=== PATIENT | female | born 1975 | race Caucasian/White ===

== ENCOUNTER 2018-09-24 11:24 | Emergency (ER) | payer BC ==
[~2018-09-24] VITALS: Ht 152.4 cm; Wt 86.4 kg
[~2018-09-24 11:24] MED LIST: MOBI4TAB PO
--- NOTE | 2018-09-24 12:01 | REP ---
Clinical: Left knee pain Technique: AP, lateral, bilateral oblique and sunrise views left knee . Findings: The osseous structures and joint spaces are intact and normal. There is no evidence for acute fracture or dislocation. No joint effusion is appreciated. Surrounding soft tissues are unremarkable. No subcutaneous emphysema or radiodense foreign body. Impression: No acute fracture or dislocation. Electronically Signed by Emory Leslie MD 09/24/2018 11:52 A
[2018-09-24] MEDS ORDERED: CETACAINE SPRAY 5GM TOP ONE (13:15)
[2018-09-24 13:58] VITALS: BP 173/92
[2018-09-24 14:00] LABS: SOURCE, BODY FLUID LFT KNEE; SYNOVIAL FLUID COLOR PALE YELLOW (YELLOW)
[2018-09-24 14:08] LABS: CRYSTALS, BODY FLUID NONE SEEN (NONE SEEN); SOURCE, BODY FLUID CRYSTALS LFT KNEE
[2018-09-24 14:13] LABS: SOURCE, BODY FLUID GLUCOSE LFT KNEE; SOURCE, BODY FLUID URIC ACID LFT KNEE; URIC ACID, BODY FLUID 5.9 MG/DL (NOT ESTABLISHED)
[2018-09-24 14:27] LABS: BODY FLUID RHEUMATOID SCREEN NEGATIVE (NEGATIVE)
[2018-09-24 14:28] LABS: MUCIN CLOT TEST 4+ (4+)
== END 2018-09-24 13:59 | disposition home or self-care (01) ==
LOC: M ED 11:24
DX: M25.462 Effusion, left knee (principal)

== ENCOUNTER 2020-01-02 13:53 | Emergency (ER) | payer BC ==
[~2020-01-02] VITALS: Ht 154.9 cm; Wt 87.6 kg
[2020-01-02 13:54] VITALS: BP 157/73
[2020-01-02] MEDS ORDERED: ENAL5TAB (14:00)
[2020-01-02] MEDS ORDERED: DICL75TA PO (14:42)
--- NOTE | 2020-01-02 15:06 | REP ---
RIGHT SHOULDER SERIES: Three views. HISTORY: Injury. Pulled right shoulder. FINDINGS: The right glenohumeral and acromioclavicular joints are normally aligned. Periarticular soft tissues are unremarkable. No fracture or subluxation is seen. IMPRESSION: Negative radiographs of the right shoulder. Electronically Signed by Fran Mars MD 01/02/2020 04:39 P
== END 2020-01-02 14:49 | disposition home or self-care (01) ==
LOC: M ED 13:53
DX: M25.511 Pain in right shoulder (principal); R20.2 Paresthesia of skin; I10 Essential (primary) hypertension; Z79.899 Other long term (current) drug therapy

== ENCOUNTER → 2020-08-29 | Outpatient (CLI) | payer SELFPAY ==
[~2020-08-29] MED LIST changes: +DICL75TA PO; +ENAL5TA
== END ==
LOC: M LABSMTC 13:23
PROVIDERS: ATTEND Pediatrics
DX: Z20.828 Contact with and (suspected) exposure to other viral communicable diseases (principal)

== ENCOUNTER → 2020-12-03 | Outpatient (CLI) | payer BC ==
[~2020-12-03] MED LIST changes: +E-Z-GAS II EFFERVESCENT PACKET (SODIUM BICARB./CITRIC ACID/SIMETHICONE) As Ordered ONE; +E-Z-HD 98% w/w 340GM SUSP BTL As Ordered ONE; +E-Z-PAQUE 96% w/w SUSP 176GM BTL As Ordered ONE
--- NOTE | 2020-12-03 13:54 | REP ---
INDICATION: DYSPHAGIA. COMPARISON: None TECHNIQUE: This procedure was performed by Luz Pang [facility], under the direct supervision of Dr. Khanna. Images were reviewed with Dr. Khanna prior to dictation. Liquid barium and gas producing crystals were given in the erect position, as well as liquid barium in the prone oblique position in order to perform a double contrast esophagram examination. 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 The intestinal gas pattern is unremarkable. The oral and pharyngeal stages of deglutition were unremarkable. Esophageal transport is prompt and efficient and there is no evidence of esophagitis, stricture, or mucosal ring. There is no evidence of a hiatal hernia. There was no gastroesophageal reflux noted . IMPRESSION: Unremarkable esophagram. 0.2 minutes of fluoroscopy time was utilized for this procedure. Some fluoroscopic images are performed with last image hold technology. These images require no additional radiation. <Electronically signed by Luz Pang > 12/03/20 1215 <Electronically signed by Fitz Khanna > 12/03/20 [id number]
== END ==
LOC: M RAD 07:19
PROVIDERS: ATTEND Nurse Practitioner Adult Health
DX: R13.10 Dysphagia, unspecified (principal)

== ENCOUNTER 2021-01-14 11:40 | Emergency (ER) | payer BC ==
[~2021-01-14] VITALS: Ht 154.9 cm; Wt 89.6 kg
[~2021-01-14 11:40] MED LIST changes: -E-Z-GAS II EFFERVESCENT PACKET (SODIUM BICARB./CITRIC ACID/SIMETHICONE) As Ordered ONE; -E-Z-HD 98% w/w 340GM SUSP BTL As Ordered ONE; -E-Z-PAQUE 96% w/w SUSP 176GM BTL As Ordered ONE
[2021-01-14 13:43] LABS: BASO # 0.1 10^3/uL (0.0-0.2); BASO % 0.6 % (0.0-1.0); EOS # 0.3 10^3/uL (0.0-0.5); EOS % 2.5 % (0.0-3.0); HEMATOCRIT 39.2 % (36.0-47.0); HEMOGLOBIN 12.8 g/dl (12.0-15.5); LYMPH # 3.5 10^3/uL (1.5-5.0); LYMPH % 32.6 % (24.0-44.0); MEAN CORPUSCULAR HEMOGLOBIN 29.4 pg (27.0-33.0); MEAN CORPUSCULAR HGB CONC 32.7 g/dl (32.0-36.5); MEAN CORPUSCULAR VOLUME 90.1 fl (80.0-96.0); MONO # 0.7 10^3/uL (0.0-0.8); MONO % 6.5 % (2.0-8.0); NEUTROPHILS # 6.2 10^3/uL (1.5-8.5); NEUTROPHILS % 57.4 % (36.0-66.0); PLATELET COUNT, AUTOMATED 275 10^3/uL (150-450); RED BLOOD COUNT 4.35 10^6/uL (4.00-5.40); WHITE BLOOD COUNT 10.8 10^3/uL (4.0-10.0)
--- NOTE | 2021-01-14 13:56 | REP ---
INDICATION: left flank pain. COMPARISON: 08/18/2009 TECHNIQUE: Noncontrast enhanced stone protocol helical technique FINDINGS: The lung bases are clear. Limited evaluation of the solid intra-abdominal organs show no gross abnormalities or significant changes from the prior exam. The patient is status post cholecystectomy. Limited evaluation of the pancreas, adrenal glands, and kidneys show no gross abnormalities. There is no nephroureterolithiasis, hydronephrosis, or hydroureter. There are no urinary bladder calcifications. Limited evaluation of the bowel loops and the mesenteries show no gross abnormalities. There is no evidence of a mass or adenopathy. There is no evidence of free fluid or free air. Bone window technique throughout the examination shows the osseous structures to be within normal limits. In the left hemipelvis there is a metallic radiodensity which is causing spray artifact likely secondary to some sort of surgical procedure. Patient does have a previous history of laparotomy. IMPRESSION: There is no evidence of acute disease. Findings as described above. <Electronically signed by Davi Gavin > 01/14/21 [id number]
[2021-01-14 14:11] LABS: ALBUMIN 3.9 GM/DL (3.2-5.2); ALT/SGPT 24 U/L (12-78); AMYLASE 73 U/L (25-115); BILIRUBIN,DIRECT 0.1 MG/DL (0.0-0.2); BILIRUBIN,TOTAL 0.5 MG/DL (0.2-1.0); BLOOD UREA NITROGEN 14 MG/DL (7-18); CALCIUM LEVEL 9.3 MG/DL (8.5-10.1); CARBON DIOXIDE LEVEL 28 MEQ/L (21-32); CHLORIDE LEVEL 106 MEQ/L (98-107); CREATININE FOR GFR 0.78 MG/DL (0.55-1.30); GLOMERULAR FILTRATION RATE > 60.0 (>58); GLUCOSE, FASTING 90 MG/DL (70-100); LIPASE 87 U/L (73-393); POTASSIUM SERUM 3.5 MEQ/L (3.5-5.1); SODIUM LEVEL 140 MEQ/L (136-145); TOTAL PROTEIN 7.8 GM/DL (6.4-8.2)
[2021-01-14] MEDS ORDERED: KETO10TAB PO (14:17)
[2021-01-14] MEDS ORDERED: KETOROLAC 30 MG/ML 1ML VIAL IV ONE (14:20)
[2021-01-14 14:23] VITALS: BP 129/72
== END 2021-01-14 15:11 | disposition home or self-care (01) ==
LOC: M ED 11:40
DX: M54.32 Sciatica, left side (principal)
CPT/HCPCS: 74176; 80048; 80076; 81001; 82150; 83690; 85025; 96374; 99284; J1885

== ENCOUNTER → 2021-01-21 | Outpatient (CLI) | payer BC ==
[~2021-01-21] MED LIST changes: +KETO10TAB PO
--- NOTE | 2021-01-21 14:20 | REP ---
INDICATION: PAIN. COMPARISON: None TECHNIQUE: AP and frog-lateral views FINDINGS: The hip joint space is symmetric and relatively well maintained. There is no acute fracture or destructive osseous lesion IMPRESSION: . negative <Electronically signed by Davi Gavin > 01/21/21 [id number]
== END ==
LOC: M WUC 12:18
PROVIDERS: ATTEND Nurse Practitioner Adult Health
DX: M25.552 Pain in left hip (principal)

== ENCOUNTER → 2021-11-18 | Outpatient (CLI) | payer BC | LOC: M EKG 11:44 | PROVIDERS: ATTEND Orthopaedic Surgery | DX: Z01.810 Encounter for preprocedural cardiovascular examination (principal) ==

== ENCOUNTER → 2023-07-28 | Outpatient (CLI) | payer BC, OTHER, SELFPAY ==
[~2023-07-28] MED LIST changes: +ENAL1TAB48; -ENAL5TA
== END ==
LOC: M WHC 07:24
PROVIDERS: ATTEND Nurse Practitioner Adult Health
DX: Z12.31 Encounter for screening mammogram for malignant neoplasm of breast (principal)

== ENCOUNTER → 2023-08-18 | Outpatient (CLI) | payer OTHER | LOC: M WHC 13:43 | PROVIDERS: ATTEND Nurse Practitioner Family | DX: N92.1 Excessive and frequent menstruation with irregular cycle (principal); R10.2 Pelvic and perineal pain; N85.4 Malposition of uterus ==

== ENCOUNTER → 2024-01-13 | Outpatient (REF) | payer OTHER ==
[~2024-01-13] MED LIST changes: +PROP60TA14 PO
== END ==
LOC: M LAB REF 16:30
PROVIDERS: ATTEND Nurse Practitioner Adult Health
DX: E78.00 Pure hypercholesterolemia, unspecified (principal)

== ENCOUNTER 2024-01-15 07:14 | Observation (INO) | payer OTHER ==
[~2024-01-15] VITALS: Ht 154.9 cm; Wt 87.5 kg
[~2024-01-15 07:14] MED LIST changes: +ACETAMINOPHEN 1000MG 100ML IV BAG As Ordered ONE; +HYDROmorphone HCL 2MG/ML 1ML VIAL As Ordered ONE; +KETOROLAC 60MG 2ML VIAL As Ordered ONE; +LIDOCAINE 2% 100MG/5ML SDV (FOR ANES.) As Ordered ONE; +MIDAZOLAM INJ 2MG/2ML VIAL As Ordered ONE; +ONDANSETRON 4MG 2ML VIAL As Ordered ONE; +ROCURONIUM BROMIDE 50MG/5ML VIAL As Ordered ONE; +fentaNYL 100 MCG/2 ML INJECTION As Ordered ONE; +propofoL 200 MG/20 ML VIAL As Ordered ONE
[2024-01-15] MEDS ORDERED: SUGAMMADEX SODIUM 500 MG/5 ML VIAL (BRIDION) As Ordered ONE (07:25)
[2024-01-15] MEDS ORDERED: LR 1,000 ML IV SCH ×2 (07:45→11:15)
[2024-01-15 07:51] LABS: HEMATOCRIT 38.9 % (36.0-47.0); HEMOGLOBIN 12.7 g/dl (12.0-15.5); MEAN CORPUSCULAR HEMOGLOBIN 28.9 pg (27.0-33.0); MEAN CORPUSCULAR HGB CONC 32.6 g/dl (32.0-36.5); MEAN CORPUSCULAR VOLUME 88.6 fl (80.0-96.0); PLATELET COUNT, AUTOMATED 359 10^3/uL (150-450); RED BLOOD COUNT 4.39 10^6/uL (4.00-5.40); WHITE BLOOD COUNT 7.1 10^3/uL (4.0-10.0)
[2024-01-15] MEDS ORDERED: SCOPOLAMINE 1MG TRANSDERMAL PATCH As Ordered ONE (08:36)
[2024-01-15] MEDS: ceFAZolin SOD 2 GM in IV 1 EA IV ONE (08:51)
[2024-01-15] MEDS ORDERED: ePHEDrine SULFATE 25 MG/5 ML(5MG/ML) SYRINGE As Ordered ONE (08:58)
[2024-01-15] MEDS: SCOPOLAMINE 1MG TRANSDERMAL PATCH TOP ONE (09:00)
[2024-01-15] MEDS ORDERED: GLYCOPYRROLATE INJ 0.2 MG/ML 2 ML VIAL As Ordered ONE (09:00)
[2024-01-15] MEDS ORDERED: HYDROMORPHONE HCL 0.5 MG/ 0.5 ML SYRINGE IV PRN (10:05)
[2024-01-15] MEDS: LR 1,000 ML IV SCH ×2 (10:05→12:40)
[2024-01-15] MEDS: oxyCODONE 5MG TAB PO PRN (11:05)
[2024-01-15] MEDS: fentaNYL 100 MCG/2 ML INJECTION IV PRN (11:06)
[2024-01-15] MEDS ORDERED: PERCOCET 5MG/325MG TAB PO PRN ×2 (11:20→12:40)
[2024-01-15] MEDS: ONDANSETRON 4MG 2ML VIAL IV PRN (12:21)
[2024-01-15] MEDS ORDERED: ONDANSETRON 4MG 2ML VIAL IV PRN (12:40)
[2024-01-15] MEDS ORDERED: KETOROLAC 30 MG/ML 1ML VIAL IV PRN (12:40)
[2024-01-15] MEDS: METOCLOPRAMIDE INJ 10MG/2ML VIAL IV PRN (12:43)
[2024-01-15 13:35] VITALS: BP 112/58; TEMP 97.7; O2SAT 100
[2024-01-15 14:05] VITALS: BP 109/59; TEMP 97.5; O2SAT 96
[2024-01-15 15:05] VITALS: BP 111/55; TEMP 98.3; O2SAT 96
[2024-01-15 16:05] VITALS: BP 113/59; TEMP 98.1; O2SAT 98
[2024-01-15] MEDS ORDERED: COLA100C5 PO (17:00)
[2024-01-15] MEDS ORDERED: IBUP-1022 PO (17:00)
[2024-01-15] MEDS ORDERED: OXYC1TAB23 PO (17:01)
[2024-01-15] MEDS ORDERED: DOCUSATE SODIUM 100MG CAPSULE PO SCH (21:00)
== END 2024-01-15 18:00 | disposition home or self-care (01) ==
LOC: M SDC 07:14 → M RR INP 07:15 → M OBS 13:30
PROVIDERS: ADMIT Specialist; ATTEND Specialist
DX: N92.0 Excessive and frequent menstruation with regular cycle (principal); D25.9 Leiomyoma of uterus, unspecified; G43.909 Migraine, unspecified, not intractable, without status migrainosus; Z79.899 Other long term (current) drug therapy; Z90.49 Acquired absence of other specified parts of digestive tract
CPT/HCPCS: 36415; 58571; 81025; 85027; 86850; 86900; 86901; 88307; J0131; J0665; J0690; J1100; J1170; J1885; J2250; J2405; J2765; J3010; S2900